=== PATIENT | male | born 1980 | race Two or more races ===

== ENCOUNTER 2021-05-17 18:12 | Emergency (ER) | payer MEDICAID ==
[~2021-05-17] VITALS: Ht 167.6 cm; Wt 75.0 kg
[2021-05-17] MEDS ORDERED: buprenorphine/naloxone 8MG-2MG SUBlingual film SL SCH ×2 (19:30→21:25)
[2021-05-17 21:24] VITALS: BP 127/94
[2021-05-17] MEDS ORDERED: BUPR1FIL3 SL (21:50)
== END 2021-05-17 22:01 | disposition home or self-care (01) ==
LOC: ER 18:14
DX: F11.23 Opioid dependence with withdrawal (principal); F17.200 Nicotine dependence, unspecified, uncomplicated; F15.90 Other stimulant use, unspecified, uncomplicated; Z72.89 Other problems related to lifestyle; Z59.0 Homelessness; Z79.899 Other long term (current) drug therapy
CPT/HCPCS: 99283